=== PATIENT | female | born 1935 | race Caucasian/White ===

== ENCOUNTER 2016-06-29 23:44 | Inpatient (IN) | payer MEDICAID, MEDICARE ==
[~2016-06-29] VITALS: Ht 157.5 cm; Wt 114.8 kg
[~2016-06-29 23:44] MED LIST: ASCO500T20 PO; CALC3.7S NS; COU5 GT; DOCU-144 PO; ENOX100D3 SQ; GLU500 PO; INSU100V32 SUBCUT; LOSA25TA3 PO; MULT-1184 PO; OMEP20CA10 PO; [UNRECOGNIZED DRUG - CODE] PO; [UNRECOGNIZED DRUG - CODE] SQ
[2016-06-29 23:51] VITALS: BP 161/75; PULSE 90; RESP 22; TEMP 97.6; O2SAT 97
[2016-06-30] MEDS ORDERED: MORPHINE 4 MG/ML INJ. SYRINGE IVP ONE (01:00)
[2016-06-30 01:07] LABS: BASOPHILS % (AUTO) 0.2 % (0.0-2.0); EOSINOPHILS # (AUTO) 0.1 K/uL (0.0-0.4); EOSINOPHILS % (AUTO) 1.5 % (0.0-4.0); HEMATOCRIT 38.3 % (36-48); HEMOGLOBIN 12.6 g/dL (12.0-16.0); LYMPHOCYTES # (AUTO) 1.4 K/uL (1.0-5.5); LYMPHOCYTES % (AUTO) 14.9 % (20.5-51.5); MEAN CORPUSCULAR HEMOGLOBIN 28 pg (27-31); MEAN CORPUSCULAR HGB CONC 33 % (32-36); MEAN CORPUSCULAR VOLUME 86 fL (79.0-98.0); MONOCYTES # (AUTO) 0.6 K/uL (0.0-1.0); MONOCYTES % (AUTO) 6.7 % (1.7-9.3); NEUTROPHILS # (AUTO) 7.4 K/uL (1.8-7.7); NEUTROPHILS % (AUTO) 76.7 % (40.0-70.0); PLATELET COUNT (AUTO) 276 K/uL (130-430); RED BLOOD CELL COUNT(AUTO) 4.46 MIL/uL (4.2-6.2); RED CELL DISTRIBUTION WIDTH 17.8 % (9.0-15.0); WHITE BLOOD COUNT (AUTO) 9.5 K/uL (4.8-10.8)
[2016-06-30 01:11] LABS: BILIRUBIN,URINE NEGATIVE (NEGATIVE); CLARITY/URINE SL HAZY (CLEAR); COLOR,URINE YELLOW (YELLOW); GLUCOSE,URINE NEGATIVE (NEGATIVE); KETONES,URINE NEGATIVE (NEGATIVE); LEUKOCYTE ESTERASE ,URINE 1+ (NEGATIVE); NITRITE, URINE NEGATIVE (NEGATIVE); PROTEIN URINE TRACE (NEGATIVE); UROBILINOGEN,URINE 0.2 (0.2-1.0)
[2016-06-30 01:15] LABS: BLOOD, URINE TRACE (NEGATIVE)
[2016-06-30 01:19] LABS: ANION GAP 5 (5-15); CALCIUM 11.2 mg/dL (8.4-11.0); CHLORIDE 103 mmol/L (98-107); GLUCOSE 104 mg/dL (70-99); POTASSIUM 4.1 mmol/L (3.5-5.1); SODIUM SERUM 134 mmol/L (136-145); UREA NITROGEN, BLOOD 13 mg/dL (8-21)
[2016-06-30 01:23] LABS: ALANINE AMINOTRANSFERASE 9 U/L (12-78); ALBUMIN 2.1 g/dL (3.4-4.8); ASPARTATE AMINOTRANSFERASE 29 U/L (10-37); TOTAL BILIRUBIN 0.3 mg/dL (0.0-1.0); TOTAL PROTEIN, SERUM 5.6 g/dL (6.4-8.3)
[2016-06-30 01:40] LABS: BACTERIA,URINE MANY /HPF (None Seen); MUCUS,URINE None Seen /LPF (None Seen); YEAST,URINE Many /HPF (None Seen)
[2016-06-30] MEDS ORDERED: TRAM50TA92 PO (01:54)
[2016-06-30] MEDS ORDERED: ALEN10TA6 PO (01:54)
[2016-06-30] MEDS ORDERED: MAGN400O4 PO (01:54)
[2016-06-30] MEDS ORDERED: COR3.125 PO (01:54)
[2016-06-30] MEDS ORDERED: DULR10 RC (01:54)
[2016-06-30] MEDS ORDERED: FURO-150 PO (01:54)
[2016-06-30] MEDS ORDERED: WARF1TAB2 PO (01:54)
[2016-06-30] MEDS ORDERED: [UNRECOGNIZED DRUG - CODE] TP (01:54)
[2016-06-30] MEDS ORDERED: ACET-1010 PO (01:54)
[2016-06-30] MEDS ORDERED: NA P118E RC (01:54)
[2016-06-30] MEDS ORDERED: ONDA4TAB5 PO (01:54)
[2016-06-30] MEDS ORDERED: ACET325T53 PO (01:54)
[2016-06-30 01:59] LABS: INR 4.2 (0.8-1.2); PROTHROMBIN TIME 47.6 SECS (9.5-12.5)
[2016-06-30] MEDS ORDERED: IPRATROPIUM BROM 0.5 MG/2.5 ML VIAL.NEB (ATROVENT) IH ONE ×2 (02:00→04:15)
[2016-06-30] MEDS ORDERED: methylPREDNISolone SOD SUCC/PF 62.5 MG/ML VIAL IVP ONE (02:00)
[2016-06-30] MEDS ORDERED: ALBUTEROL SULFATE 0.083% 2.5 MG/3 ML VIAL.NEB IH ONE ×2 (02:00→04:15)
[2016-06-30] MEDS ORDERED: NACL 0.9% 1,000 ML IV ONE (02:45)
[2016-06-30] MEDS ORDERED: IOHEXOL 350 mgI/mL, 150 ML INFUS..BTL IV ONE (03:10)
[2016-06-30] MEDS ORDERED: IPRATROPIUM/ALBUTEROL SULFATE 3 ML AMPUL.NEB INH ONE (04:30)
[2016-06-30] MEDS ORDERED: IPRATROPIUM/ALBUTEROL SULFATE 3 ML AMPUL.NEB INH PRN (04:30)
[2016-06-30] MEDS ORDERED: cefTRIAXone 1 GM IVPB PREMIX 50 ML IV ONE ×2 (04:30→09:30)
[2016-06-30] MEDS: FUROSEMIDE 40 MG/4 ML VIAL IVP SCH ×3 (04:30→20:59)
[2016-06-30] MEDS ORDERED: FUROSEMIDE 40 MG/4 ML VIAL IVP ONE (04:30)
[2016-06-30] MEDS ORDERED: AZITHROMYCIN 500 MG in NS 250 ML IV ONE (04:30)
[2016-06-30 04:54] VITALS: BP 157/57; PULSE 96; RESP 18; TEMP 96.8; O2SAT 95
[2016-06-30 05:15] VITALS: BP 157/57; PULSE 95
[2016-06-30] MEDS ORDERED: AZITHROMYCIN 500 MG/VIAL (ZITHROMAX) IV ONE (05:22)
[2016-06-30 08:00] VITALS: BP 137/43; PULSE 96; RESP 18; TEMP 97.3; O2SAT 95
[2016-06-30] MEDS ORDERED: ACETAMINOPHEN 325 MG TABLET PO PRN (08:00)
[2016-06-30] MEDS ORDERED: MILK OF MAGNESIA 30 ML UDC PO PRN (08:00)
[2016-06-30] MEDS ORDERED: NA PHOS,M-B/NA PHOS,DI-BA 118 ML (FLEET ENEMA) RC SCH (08:00)
[2016-06-30] MEDS: OMEPRAZOLE 20 MG CAPSULE.DR (PriLOSEC) PO SCH ×2 (08:57→20:57)
[2016-06-30] MEDS: ASCORBIC ACID 500 MG TABLET PO SCH (08:57)
[2016-06-30] MEDS: DOCUSATE SODIUM 100 MG CAPSULE PO SCH (08:58)
[2016-06-30] MEDS: LOSARTAN POTASSIUM 25 MG TABLET PO SCH (08:58)
[2016-06-30] MEDS: CARVEDILOL 3.125 MG TABLET (COREG) PO SCH ×2 (08:59→20:59)
[2016-06-30] MEDS ORDERED: BISACODYL 10 MG/SUPPOSITORY RC SCH (09:00)
[2016-06-30] MEDS ORDERED: ZINC OXIDE TP SCH (09:00)
[2016-06-30] MEDS ORDERED: BISACODYL 10 MG/SUPPOSITORY RC PRN (09:15)
[2016-06-30] MEDS ORDERED: ALBUTEROL SULFATE 0.083% 2.5 MG/3 ML VIAL.NEB INH PRN (09:15)
[2016-06-30 12:00] VITALS: BP 124/58; PULSE 91; RESP 18; TEMP 97.1; O2SAT 94
[2016-06-30 16:00] VITALS: BP 133/78; PULSE 77; RESP 18; TEMP 98.8; O2SAT 97
[2016-06-30] MEDS ORDERED: WARFARIN SODIUM 1 MG TABLET PO SCH (18:00)
[2016-06-30 20:00] VITALS: BP 142/60; PULSE 80; RESP 18; TEMP 97.2; O2SAT 96
[2016-07-01 00:03] VITALS: BP 150/70; PULSE 87; RESP 20; TEMP 97.1; O2SAT 96
[2016-07-01] MEDS: traMADol HCL HCL 50 MG TABLET (ULTRAM) PO PRN ×3 (00:12→17:46)
[2016-07-01 04:21] VITALS: BP 123/64; PULSE 58; RESP 20; TEMP 96.8; O2SAT 96
[2016-07-01 07:26] LABS: BASOPHILS # (AUTO) 0.1 K/uL (0.0-0.2); BASOPHILS % (AUTO) 0.6 % (0.0-2.0); EOSINOPHILS % (AUTO) 0.2 % (0.0-4.0); HEMATOCRIT 34.5 % (36-48); HEMOGLOBIN 11.3 g/dL (12.0-16.0); LYMPHOCYTES % (AUTO) 9.6 % (20.5-51.5); MEAN CORPUSCULAR HEMOGLOBIN 28 pg (27-31); MEAN CORPUSCULAR HGB CONC 33 % (32-36); MEAN CORPUSCULAR VOLUME 86 fL (79.0-98.0); MONOCYTES # (AUTO) 0.5 K/uL (0.0-1.0); MONOCYTES % (AUTO) 4.8 % (1.7-9.3); NEUTROPHILS % (AUTO) 84.8 % (40.0-70.0); PLATELET COUNT (AUTO) 251 K/uL (130-430); RED CELL DISTRIBUTION WIDTH 18.4 % (9.0-15.0)
[2016-07-01 07:32] LABS: WHITE BLOOD COUNT (AUTO) 10.6 K/uL (4.8-10.8)
[2016-07-01 07:41] LABS: ANION GAP 8 (5-15); CALCIUM 10.7 mg/dL (8.4-11.0); CHLORIDE 101 mmol/L (98-107); CREATININE 0.85 mg/dL (0.55-1.30); GLUCOSE 130 mg/dL (70-99); POTASSIUM 4.2 mmol/L (3.5-5.1); SODIUM SERUM 137 mmol/L (136-145); UREA NITROGEN, BLOOD 19 mg/dL (8-21)
[2016-07-01 08:00] VITALS: BP 143/63; PULSE 84; RESP 16; TEMP 96.9; O2SAT 96
[2016-07-01] MEDS: DOCUSATE SODIUM 100 MG CAPSULE PO SCH (08:58)
[2016-07-01] MEDS: OMEPRAZOLE 20 MG CAPSULE.DR (PriLOSEC) PO SCH ×2 (08:59→20:38)
[2016-07-01] MEDS: ASCORBIC ACID 500 MG TABLET PO SCH (09:00)
[2016-07-01] MEDS: LOSARTAN POTASSIUM 25 MG TABLET PO SCH (09:00)
[2016-07-01] MEDS: CARVEDILOL 3.125 MG TABLET (COREG) PO SCH ×2 (09:00→20:38)
[2016-07-01] MEDS: FUROSEMIDE 40 MG/4 ML VIAL IVP SCH ×2 (09:01→20:37)
[2016-07-01] MEDS: cefTRIAXone 1 GM IVPB PREMIX 50 ML IV SCH (09:02)
[2016-07-01 12:51] VITALS: BP 108/55; PULSE 77; RESP 18; TEMP 96.5; O2SAT 96
[2016-07-01 17:38] VITALS: BP 125/58; PULSE 75; RESP 20; TEMP 96.8; O2SAT 96
[2016-07-01] MEDS: ACETAMINOPHEN 500 MG TABLET PO PRN (20:36)
[2016-07-01 23:51] VITALS: BP_SYST 130; BP_SYST 137; BP_DIAS 47; BP_DIAS 56; PULSE 49; PULSE 82; RESP 16; TEMP 96.7; TEMP 97.9; O2SAT 94; O2SAT 95
[2016-07-02 04:18] VITALS: BP 144/63; PULSE 46; RESP 16; TEMP 98.9; O2SAT 98
[2016-07-02] MEDS ORDERED: ALENDRONATE SODIUM 10 MG TABLET (FOSAMAX) PO SCH (06:00)
[2016-07-02 07:57] VITALS: BP 141/62; PULSE 73; RESP 18; TEMP 98.6; O2SAT 97
[2016-07-02 08:01] LABS: ANION GAP 10 (5-15); CALCIUM 10.6 mg/dL (8.4-11.0); CHLORIDE 98 mmol/L (98-107); CREATININE 0.98 mg/dL (0.55-1.30); GLUCOSE 88 mg/dL (70-99); POTASSIUM 3.4 mmol/L (3.5-5.1); SODIUM SERUM 136 mmol/L (136-145); UREA NITROGEN, BLOOD 20 mg/dL (8-21)
[2016-07-02 09:09] LABS: INR 4.8 (0.8-1.2); PROTHROMBIN TIME 54.8 SECS (9.5-12.5)
[2016-07-02] MEDS: LOSARTAN POTASSIUM 25 MG TABLET PO SCH (09:21)
[2016-07-02] MEDS: CARVEDILOL 3.125 MG TABLET (COREG) PO SCH ×2 (09:21→21:47)
[2016-07-02] MEDS: ASCORBIC ACID 500 MG TABLET PO SCH (09:21)
[2016-07-02] MEDS: cefTRIAXone 1 GM IVPB PREMIX 50 ML IV SCH (09:22)
[2016-07-02] MEDS: DOCUSATE SODIUM 100 MG CAPSULE PO SCH (09:22)
[2016-07-02] MEDS: FUROSEMIDE 40 MG/4 ML VIAL IVP SCH ×2 (09:22→21:45)
[2016-07-02] MEDS: OMEPRAZOLE 20 MG CAPSULE.DR (PriLOSEC) PO SCH ×2 (09:22→21:46)
[2016-07-02 12:00] VITALS: BP 124/46; PULSE 86; RESP 18; TEMP 98.2; O2SAT 97
[2016-07-02 16:00] VITALS: BP 111/55; PULSE 85; RESP 18; TEMP 98.2; O2SAT 97
[2016-07-02 16:23] VITALS: Ht 157.5 cm; Wt 114.8 kg
[2016-07-02] MEDS: ACETAMINOPHEN 500 MG TABLET PO PRN (18:53)
[2016-07-02 19:30] VITALS: BP 135/59; PULSE 80; RESP 20; TEMP 97.1; O2SAT 98
[2016-07-02] MEDS: FLUCONAZOLE 100 mg/ NS 50 ML IV SCH (21:39)
[2016-07-02] MEDS: MUPIROCIN 2% TOPICAL OINTMENT 22 GM TP SCH (21:47)
[2016-07-02] MEDS: LINEZOLID 300 ML IV SCH (22:44)
[2016-07-02] MEDS: traMADol HCL HCL 50 MG TABLET (ULTRAM) PO PRN (23:17)
[2016-07-03] VITALS (7 sets, daily range): BP systolic 114–145; BP diastolic 50–73; PULSE 76–101; RESP 17–20; TEMP 96.6–98.1; O2SAT 93–98
[2016-07-03] MEDS: traMADol HCL HCL 50 MG TABLET (ULTRAM) PO PRN (07:02)
[2016-07-03] MEDS: ONDANSETRON 4 MG ODT TAB PO PRN (08:26)
[2016-07-03] MEDS: FUROSEMIDE 40 MG/4 ML VIAL IVP SCH ×2 (09:43→22:01)
[2016-07-03] MEDS: ASCORBIC ACID 500 MG TABLET PO SCH (09:44)
[2016-07-03] MEDS: CARVEDILOL 3.125 MG TABLET (COREG) PO SCH ×2 (09:44→22:00)
[2016-07-03] MEDS: OMEPRAZOLE 20 MG CAPSULE.DR (PriLOSEC) PO SCH ×2 (09:44→22:00)
[2016-07-03] MEDS: LOSARTAN POTASSIUM 25 MG TABLET PO SCH (09:44)
[2016-07-03] MEDS: DOCUSATE SODIUM 100 MG CAPSULE PO SCH (09:45)
[2016-07-03] MEDS: MUPIROCIN 2% TOPICAL OINTMENT 22 GM TP SCH ×2 (09:48→22:01)
[2016-07-03] MEDS: LINEZOLID 300 ML IV SCH ×2 (09:48→22:54)
[2016-07-03] MEDS: FLUCONAZOLE 100 mg/ NS 50 ML IV SCH (21:44)
[2016-07-04 00:02] VITALS: BP 115/66; PULSE 80; RESP 16; TEMP 98.7; O2SAT 97
[2016-07-04] MEDS: traMADol HCL HCL 50 MG TABLET (ULTRAM) PO PRN (03:30)
[2016-07-04 04:02] VITALS: BP 139/60; PULSE 80; RESP 17; TEMP 97.5; O2SAT 98
[2016-07-04 06:38] LABS: BASOPHILS # (AUTO) 0.2 K/uL (0.0-0.2); EOSINOPHILS # (AUTO) 0.2 K/uL (0.0-0.4); EOSINOPHILS % (AUTO) 1.9 % (0.0-4.0); HEMATOCRIT 33.3 % (36-48); HEMOGLOBIN 11.5 g/dL (12.0-16.0); LYMPHOCYTES # (AUTO) 1.3 K/uL (1.0-5.5); LYMPHOCYTES % (AUTO) 12.2 % (20.5-51.5); MEAN CORPUSCULAR HEMOGLOBIN 30 pg (27-31); MEAN CORPUSCULAR HGB CONC 34 % (32-36); MEAN CORPUSCULAR VOLUME 86 fL (79.0-98.0); MONOCYTES # (AUTO) 0.6 K/uL (0.0-1.0); MONOCYTES % (AUTO) 5.5 % (1.7-9.3); NEUTROPHILS # (AUTO) 8.2 K/uL (1.8-7.7); NEUTROPHILS % (AUTO) 78.4 % (40.0-70.0); PLATELET COUNT (AUTO) 249 K/uL (130-430); RED CELL DISTRIBUTION WIDTH 17.4 % (9.0-15.0); WHITE BLOOD COUNT (AUTO) 10.5 K/uL (4.8-10.8)
[2016-07-04 07:06] LABS: ANION GAP 10 (5-15); CALCIUM 10.4 mg/dL (8.4-11.0); CHLORIDE 94 mmol/L (98-107); CREATININE 1.48 mg/dL (0.55-1.30); GLUCOSE 85 mg/dL (70-99); POTASSIUM 3.7 mmol/L (3.5-5.1); SODIUM SERUM 133 mmol/L (136-145); UREA NITROGEN, BLOOD 24 mg/dL (8-21)
[2016-07-04 07:30] VITALS: BP 142/50; PULSE 76; RESP 20; TEMP 97.6; O2SAT 97
[2016-07-04 07:31] LABS: INR 3.3 (0.8-1.2); PROTHROMBIN TIME 36.8 SECS (9.5-12.5)
[2016-07-04] MEDS: LINEZOLID 300 ML IV SCH ×2 (09:27→23:30)
[2016-07-04] MEDS: FUROSEMIDE 40 MG/4 ML VIAL IVP SCH ×2 (09:28→21:59)
[2016-07-04] MEDS: LOSARTAN POTASSIUM 25 MG TABLET PO SCH (09:28)
[2016-07-04] MEDS: ASCORBIC ACID 500 MG TABLET PO SCH (09:28)
[2016-07-04] MEDS: DOCUSATE SODIUM 100 MG CAPSULE PO SCH (09:28)
[2016-07-04] MEDS: CARVEDILOL 3.125 MG TABLET (COREG) PO SCH ×2 (09:29→22:03)
[2016-07-04] MEDS: OMEPRAZOLE 20 MG CAPSULE.DR (PriLOSEC) PO SCH ×2 (09:29→22:00)
[2016-07-04] MEDS: MUPIROCIN 2% TOPICAL OINTMENT 22 GM TP SCH ×2 (11:00→22:36)
[2016-07-04 12:57] VITALS: BP 110/40; PULSE 74; RESP 18; TEMP 97.9; O2SAT 97
[2016-07-04 16:05] VITALS: BP 104/46; PULSE 75; RESP 18; TEMP 97.9; O2SAT 97
[2016-07-04 19:56] VITALS: BP 142/60; PULSE 80; RESP 15; TEMP 96; O2SAT 96
[2016-07-04] MEDS: FLUCONAZOLE 100 mg/ NS 50 ML IV SCH (21:58)
[2016-07-05] VITALS: BP 123/58; PULSE 92; RESP 17; TEMP 97.2; O2SAT 97
[2016-07-05 04:00] VITALS: BP 120/62; PULSE 87; RESP 16; TEMP 98.7; O2SAT 98
[2016-07-05 08:00] VITALS: BP 129/45; PULSE 81; RESP 18; TEMP 97.3; O2SAT 100
[2016-07-05] MEDS: DOCUSATE SODIUM 100 MG CAPSULE PO SCH (09:00)
[2016-07-05 09:29] LABS: ANION GAP 9 (5-15); CALCIUM 10.9 mg/dL (8.4-11.0); CHLORIDE 94 mmol/L (98-107); CREATININE 1.81 mg/dL (0.55-1.30); GLUCOSE 87 mg/dL (70-99); POTASSIUM 3.4 mmol/L (3.5-5.1); SODIUM SERUM 132 mmol/L (136-145); UREA NITROGEN, BLOOD 27 mg/dL (8-21)
[2016-07-05 09:33] LABS: INR 2.8 (0.8-1.2)
[2016-07-05 09:36] LABS: PROTHROMBIN TIME 31.7 SECS (9.5-12.5)
[2016-07-05] MEDS: LINEZOLID 300 ML IV SCH ×2 (10:09→22:45)
[2016-07-05] MEDS: MUPIROCIN 2% TOPICAL OINTMENT 22 GM TP SCH ×2 (10:09→21:23)
[2016-07-05] MEDS: CARVEDILOL 3.125 MG TABLET (COREG) PO SCH ×2 (10:10→20:57)
[2016-07-05] MEDS: OMEPRAZOLE 20 MG CAPSULE.DR (PriLOSEC) PO SCH ×2 (10:10→20:56)
[2016-07-05] MEDS: LOSARTAN POTASSIUM 25 MG TABLET PO SCH (10:11)
[2016-07-05] MEDS: ASCORBIC ACID 500 MG TABLET PO SCH (10:11)
[2016-07-05] MEDS: FUROSEMIDE 40 MG/4 ML VIAL IVP SCH ×2 (10:11→20:58)
[2016-07-05 12:10] VITALS: BP 114/76; PULSE 67; RESP 18; TEMP 96.4; O2SAT 98
[2016-07-05 16:04] VITALS: BP 146/58; PULSE 73; RESP 18; TEMP 96.8; O2SAT 96
[2016-07-05] MEDS: traMADol HCL HCL 50 MG TABLET (ULTRAM) PO PRN (16:26)
[2016-07-05] MEDS ORDERED: POTASSIUM CHLORIDE 20 MEQ TAB.PRT.SR PO ONE (17:30)
[2016-07-05] MEDS: FLUCONAZOLE 100 mg/ NS 50 ML IV SCH (21:22)
[2016-07-06] VITALS (7 sets, daily range): BP systolic 128–147; BP diastolic 52–62; PULSE 67–87; RESP 16–20; TEMP 96.7–98; O2SAT 94–98
[2016-07-06 08:03] LABS: BASOPHILS # (AUTO) 0.1 K/uL (0.0-0.2); BASOPHILS % (AUTO) 0.6 % (0.0-2.0); EOSINOPHILS # (AUTO) 0.1 K/uL (0.0-0.4); HEMATOCRIT 33.7 % (36-48); LYMPHOCYTES # (AUTO) 0.9 K/uL (1.0-5.5); LYMPHOCYTES % (AUTO) 9.1 % (20.5-51.5); MEAN CORPUSCULAR HEMOGLOBIN 28 pg (27-31); MEAN CORPUSCULAR HGB CONC 33 % (32-36); MEAN CORPUSCULAR VOLUME 85 fL (79.0-98.0); MONOCYTES # (AUTO) 0.7 K/uL (0.0-1.0); MONOCYTES % (AUTO) 6.9 % (1.7-9.3); NEUTROPHILS # (AUTO) 8.4 K/uL (1.8-7.7); NEUTROPHILS % (AUTO) 82.4 % (40.0-70.0); PLATELET COUNT (AUTO) 228 K/uL (130-430); RED BLOOD CELL COUNT(AUTO) 3.96 MIL/uL (4.2-6.2); RED CELL DISTRIBUTION WIDTH 17.6 % (9.0-15.0); WHITE BLOOD COUNT (AUTO) 10.2 K/uL (4.8-10.8)
[2016-07-06 08:14] LABS: ANION GAP 12 (5-15); CALCIUM 10.7 mg/dL (8.4-11.0); CHLORIDE 93 mmol/L (98-107); CREATININE 1.84 mg/dL (0.55-1.30); GLUCOSE 83 mg/dL (70-99); PHOSPHORUS 3.8 mg/dL (2.7-4.5); POTASSIUM 3.5 mmol/L (3.5-5.1); SODIUM SERUM 131 mmol/L (136-145); UREA NITROGEN, BLOOD 28 mg/dL (8-21)
[2016-07-06 08:18] LABS: INR 2.4 (0.8-1.2); PROTHROMBIN TIME 26.9 SECS (9.5-12.5)
[2016-07-06] MEDS: FUROSEMIDE 40 MG/4 ML VIAL IVP SCH ×2 (09:49→21:16)
[2016-07-06] MEDS: DOCUSATE SODIUM 100 MG CAPSULE PO SCH (09:50)
[2016-07-06] MEDS: LOSARTAN POTASSIUM 25 MG TABLET PO SCH (09:50)
[2016-07-06] MEDS: OMEPRAZOLE 20 MG CAPSULE.DR (PriLOSEC) PO SCH ×2 (09:50→21:14)
[2016-07-06] MEDS: ASCORBIC ACID 500 MG TABLET PO SCH (09:50)
[2016-07-06] MEDS: LINEZOLID 300 ML IV SCH ×2 (09:51→22:32)
[2016-07-06] MEDS: CARVEDILOL 3.125 MG TABLET (COREG) PO SCH ×2 (09:51→21:15)
[2016-07-06] MEDS: MUPIROCIN 2% TOPICAL OINTMENT 22 GM TP SCH ×2 (09:58→21:18)
[2016-07-06] MEDS ORDERED: MAGNESIUM SULFATE IN WATER 100 ML IV ONE (13:00)
[2016-07-06] MEDS: MAGNESIUM SULFATE 50 ML IV SCH ×2 (13:54→14:43)
[2016-07-06] MEDS: WARFARIN SODIUM 1 MG TABLET PO SCH (17:02)
[2016-07-06] MEDS: FLUCONAZOLE 100 mg/ NS 50 ML IV SCH (21:15)
[2016-07-07] VITALS (7 sets, daily range): BP systolic 128–146; BP diastolic 43–79; PULSE 60–81; RESP 17–22; TEMP 96–98.1; O2SAT 93–98
[2016-07-07 07:26] LABS: ANION GAP 12 (5-15); CALCIUM 10.8 mg/dL (8.4-11.0); CHLORIDE 93 mmol/L (98-107); CREATININE 2.05 mg/dL (0.55-1.30); GLUCOSE 92 mg/dL (70-99); POTASSIUM 3.4 mmol/L (3.5-5.1); SODIUM SERUM 131 mmol/L (136-145); UREA NITROGEN, BLOOD 30 mg/dL (8-21)
[2016-07-07] MEDS: LINEZOLID 300 ML IV SCH ×2 (10:12→21:15)
[2016-07-07] MEDS: DOCUSATE SODIUM 100 MG CAPSULE PO SCH (10:13)
[2016-07-07] MEDS: ASCORBIC ACID 500 MG TABLET PO SCH (10:14)
[2016-07-07] MEDS: FUROSEMIDE 40 MG TABLET PO SCH (10:14)
[2016-07-07] MEDS: OMEPRAZOLE 20 MG CAPSULE.DR (PriLOSEC) PO SCH ×2 (10:14→21:16)
[2016-07-07] MEDS: LOSARTAN POTASSIUM 25 MG TABLET PO SCH (10:14)
[2016-07-07] MEDS: CARVEDILOL 3.125 MG TABLET (COREG) PO SCH ×2 (10:16→21:16)
[2016-07-07] MEDS: MUPIROCIN 2% TOPICAL OINTMENT 22 GM TP SCH ×2 (10:17→21:17)
[2016-07-07] MEDS: WARFARIN SODIUM 1 MG TABLET PO SCH (18:11)
[2016-07-07] MEDS: FLUCONAZOLE 100 mg/ NS 50 ML IV SCH (21:14)
[2016-07-08] VITALS: BP 132/58; PULSE 69; RESP 17; TEMP 97.4; O2SAT 96
[2016-07-08 04:02] VITALS: BP 124/54; PULSE 61; RESP 17; TEMP 96.9; O2SAT 96
[2016-07-08 07:08] LABS: ANION GAP 11 (5-15); CALCIUM 10.7 mg/dL (8.4-11.0); CHLORIDE 91 mmol/L (98-107); CREATININE 2.05 mg/dL (0.55-1.30); GLUCOSE 92 mg/dL (70-99); POTASSIUM 3.2 mmol/L (3.5-5.1); SODIUM SERUM 130 mmol/L (136-145); UREA NITROGEN, BLOOD 30 mg/dL (8-21)
[2016-07-08 07:52] LABS: INR 2.3 (0.8-1.2); PROTHROMBIN TIME 25.5 SECS (9.5-12.5)
[2016-07-08 08:00] VITALS: BP_SYST 150; BP_SYST 158; BP_DIAS 51; BP_DIAS 61; PULSE 85; PULSE 92; RESP 18; RESP 22; TEMP 98; O2SAT 92; O2SAT 95
[2016-07-08] MEDS: OMEPRAZOLE 20 MG CAPSULE.DR (PriLOSEC) PO SCH ×2 (09:14→22:33)
[2016-07-08] MEDS: DOCUSATE SODIUM 100 MG CAPSULE PO SCH (09:14)
[2016-07-08] MEDS: CARVEDILOL 3.125 MG TABLET (COREG) PO SCH ×2 (09:14→22:34)
[2016-07-08] MEDS: ASCORBIC ACID 500 MG TABLET PO SCH (09:14)
[2016-07-08] MEDS: LOSARTAN POTASSIUM 25 MG TABLET PO SCH (09:15)
[2016-07-08] MEDS: FUROSEMIDE 40 MG TABLET PO SCH (09:15)
[2016-07-08] MEDS: LINEZOLID 300 ML IV SCH (09:21)
[2016-07-08] MEDS: MUPIROCIN 2% TOPICAL OINTMENT 22 GM TP SCH ×2 (09:22→22:45)
[2016-07-08] MEDS ORDERED: MAGNESIUM SULFATE 4 GM in D5W 250 ML IV ONE (10:45)
[2016-07-08 12:00] VITALS: BP 159/82; PULSE 57; RESP 20; TEMP 97.7; O2SAT 92
[2016-07-08] MEDS: traMADol HCL HCL 50 MG TABLET (ULTRAM) PO PRN (13:58)
[2016-07-08 16:03] VITALS: BP 144/64; PULSE 58; RESP 18; TEMP 96.8; O2SAT 95
[2016-07-08] MEDS: WARFARIN SODIUM 1 MG TABLET PO SCH (17:48)
[2016-07-08 20:40] VITALS: BP 155/73; PULSE 56; RESP 17; TEMP 97.1; O2SAT 94
[2016-07-09] VITALS (7 sets, daily range): BP systolic 107–146; BP diastolic 49–69; PULSE 70–81; RESP 15–20; TEMP 96.5–98.9; O2SAT 95–98
[2016-07-09 07:28] LABS: BASOPHILS # (AUTO) 0.1 K/uL (0.0-0.2); BASOPHILS % (AUTO) 1.4 % (0.0-2.0); EOSINOPHILS # (AUTO) 0.1 K/uL (0.0-0.4); EOSINOPHILS % (AUTO) 1.4 % (0.0-4.0); HEMATOCRIT 34.7 % (36-48); HEMOGLOBIN 11.7 g/dL (12.0-16.0); LYMPHOCYTES % (AUTO) 14.2 % (20.5-51.5); MEAN CORPUSCULAR HEMOGLOBIN 29 pg (27-31); MEAN CORPUSCULAR HGB CONC 34 % (32-36); MEAN CORPUSCULAR VOLUME 85 fL (79.0-98.0); MONOCYTES # (AUTO) 0.5 K/uL (0.0-1.0); NEUTROPHILS # (AUTO) 5.1 K/uL (1.8-7.7); PLATELET COUNT (AUTO) 262 K/uL (130-430); RED BLOOD CELL COUNT(AUTO) 4.07 MIL/uL (4.2-6.2); RED CELL DISTRIBUTION WIDTH 17.9 % (9.0-15.0); WHITE BLOOD COUNT (AUTO) 6.8 K/uL (4.8-10.8)
[2016-07-09 07:29] LABS: ANION GAP 10 (5-15); CALCIUM 10.7 mg/dL (8.4-11.0); CHLORIDE 92 mmol/L (98-107); CREATININE 2.18 mg/dL (0.55-1.30); GLUCOSE 99 mg/dL (70-99); POTASSIUM 3.4 mmol/L (3.5-5.1); SODIUM SERUM 129 mmol/L (136-145); UREA NITROGEN, BLOOD 29 mg/dL (8-21)
[2016-07-09 07:41] LABS: INR 2.6 (0.8-1.2); PROTHROMBIN TIME 29.1 SECS (9.5-12.5)
[2016-07-09] MEDS: OMEPRAZOLE 20 MG CAPSULE.DR (PriLOSEC) PO SCH ×2 (09:06→21:32)
[2016-07-09] MEDS: FUROSEMIDE 40 MG TABLET PO SCH (09:06)
[2016-07-09] MEDS: ASCORBIC ACID 500 MG TABLET PO SCH (09:06)
[2016-07-09] MEDS: DOCUSATE SODIUM 100 MG CAPSULE PO SCH (09:06)
[2016-07-09] MEDS: CARVEDILOL 3.125 MG TABLET (COREG) PO SCH ×2 (09:07→21:32)
[2016-07-09] MEDS: MUPIROCIN 2% TOPICAL OINTMENT 22 GM TP SCH ×2 (09:08→21:33)
[2016-07-09] MEDS ORDERED: POTASSIUM CHLORIDE 40 MEQ, LIDOCAINE JECT 2% PF 100 MG 75 MG in NS 250 ML IV ONE (11:00)
[2016-07-09] MEDS: FUROSEMIDE 100 MG in D5W 90 ML IV SCH (12:39)
[2016-07-09 12:50] LABS: BILIRUBIN,URINE NEGATIVE (NEGATIVE); BLOOD, URINE NEGATIVE (NEGATIVE); CLARITY/URINE CLEAR (CLEAR); COLOR,URINE YELLOW (YELLOW); GLUCOSE,URINE NEGATIVE (NEGATIVE); KETONES,URINE NEGATIVE (NEGATIVE); LEUKOCYTE ESTERASE ,URINE 1+ (NEGATIVE); NITRITE, URINE NEGATIVE (NEGATIVE); PH,URINE 5.5 (5.0-8.0); PROTEIN URINE NEGATIVE (NEGATIVE); UROBILINOGEN,URINE 0.2 (0.2-1.0)
[2016-07-09 13:25] LABS: BACTERIA,URINE MODERATE /HPF (None Seen); RBC,URINE 0-3 /HPF (0-3); YEAST,URINE Moderate /HPF (None Seen)
[2016-07-09] MEDS: WARFARIN SODIUM 1 MG TABLET PO SCH (18:24)
[2016-07-09] MEDS: ACETAMINOPHEN 500 MG TABLET PO PRN (23:59)
[2016-07-10 03:46] VITALS: BP 125/50; PULSE 72; RESP 18; TEMP 96.6; O2SAT 97
[2016-07-10 07:24] LABS: BASOPHILS % (AUTO) 0.2 % (0.0-2.0); EOSINOPHILS # (AUTO) 0.1 K/uL (0.0-0.4); EOSINOPHILS % (AUTO) 1.4 % (0.0-4.0); HEMATOCRIT 35.7 % (36-48); HEMOGLOBIN 11.7 g/dL (12.0-16.0); LYMPHOCYTES # (AUTO) 0.8 K/uL (1.0-5.5); LYMPHOCYTES % (AUTO) 14.2 % (20.5-51.5); MEAN CORPUSCULAR HEMOGLOBIN 28 pg (27-31); MEAN CORPUSCULAR HGB CONC 33 % (32-36); MEAN CORPUSCULAR VOLUME 86 fL (79.0-98.0); MONOCYTES # (AUTO) 0.4 K/uL (0.0-1.0); MONOCYTES % (AUTO) 6.3 % (1.7-9.3); NEUTROPHILS # (AUTO) 4.4 K/uL (1.8-7.7); NEUTROPHILS % (AUTO) 77.9 % (40.0-70.0); PLATELET COUNT (AUTO) 224 K/uL (130-430); RED BLOOD CELL COUNT(AUTO) 4.15 MIL/uL (4.2-6.2); RED CELL DISTRIBUTION WIDTH 17.5 % (9.0-15.0); WHITE BLOOD COUNT (AUTO) 5.7 K/uL (4.8-10.8)
[2016-07-10 07:38] LABS: ALANINE AMINOTRANSFERASE 12 U/L (12-78); ALBUMIN 1.8 g/dL (3.4-4.8); ANION GAP 8 (5-15); ASPARTATE AMINOTRANSFERASE 32 U/L (10-37); CALCIUM 10.3 mg/dL (8.4-11.0); CHLORIDE 92 mmol/L (98-107); CREATININE 2.04 mg/dL (0.55-1.30); GLUCOSE 87 mg/dL (70-99); POTASSIUM 3.3 mmol/L (3.5-5.1); SODIUM SERUM 129 mmol/L (136-145); TOTAL BILIRUBIN 0.2 mg/dL (0.0-1.0); TOTAL PROTEIN, SERUM 5.5 g/dL (6.4-8.3); UREA NITROGEN, BLOOD 32 mg/dL (8-21)
[2016-07-10 07:55] VITALS: BP 153/53; PULSE 78; RESP 19; TEMP 96.8
[2016-07-10 08:00] VITALS: BP 153/53; PULSE 78; RESP 19; TEMP 96.8
[2016-07-10] MEDS: ASCORBIC ACID 500 MG TABLET PO SCH (08:41)
[2016-07-10] MEDS: OMEPRAZOLE 20 MG CAPSULE.DR (PriLOSEC) PO SCH ×2 (08:42→23:01)
[2016-07-10] MEDS: CARVEDILOL 3.125 MG TABLET (COREG) PO SCH ×2 (08:42→23:02)
[2016-07-10] MEDS: MUPIROCIN 2% TOPICAL OINTMENT 22 GM TP SCH ×2 (08:43→23:00)
[2016-07-10] MEDS: DOCUSATE SODIUM 100 MG CAPSULE PO SCH (08:43)
[2016-07-10] MEDS ORDERED: POTASSIUM CHLORIDE 40 MEQ, LIDOCAINE JECT 2% PF 100 MG 50 MG in NS 250 ML IV ONE (10:00)
[2016-07-10] MEDS: FUROSEMIDE 100 MG in D5W 90 ML IV SCH (10:15)
[2016-07-10] MEDS ORDERED: METOLAZONE 5 MG TABLET PO ONE (10:30)
[2016-07-10 12:00] VITALS: BP 141/48; PULSE 78; RESP 21; TEMP 96.4; O2SAT 97
[2016-07-10 16:00] VITALS: BP 99/62; PULSE 79; RESP 21; TEMP 97.1; O2SAT 92
[2016-07-10] MEDS: WARFARIN SODIUM 1 MG TABLET PO SCH (18:25)
[2016-07-10 20:05] VITALS: BP 111/74; PULSE 86; RESP 18; TEMP 97.8; O2SAT 97
[2016-07-10] MEDS: MENTHOL/ZINC OXIDE 113 GM OINT. TP SCH (23:00)
[2016-07-11] VITALS (7 sets, daily range): BP systolic 118–143; BP diastolic 46–67; PULSE 74–93; RESP 18–21; TEMP 97–98.6; O2SAT 92–99
[2016-07-11] MEDS: ACETAMINOPHEN 500 MG TABLET PO PRN (01:59)
[2016-07-11 07:53] LABS: ANION GAP 8 (5-15); CALCIUM 10.3 mg/dL (8.4-11.0); CHLORIDE 93 mmol/L (98-107); CREATININE 1.66 mg/dL (0.55-1.30); GLUCOSE 81 mg/dL (70-99); POTASSIUM 3.2 mmol/L (3.5-5.1); SODIUM SERUM 130 mmol/L (136-145); UREA NITROGEN, BLOOD 31 mg/dL (8-21)
[2016-07-11] MEDS: CARVEDILOL 3.125 MG TABLET (COREG) PO SCH ×2 (08:12→20:22)
[2016-07-11] MEDS: ASCORBIC ACID 500 MG TABLET PO SCH (08:12)
[2016-07-11] MEDS: OMEPRAZOLE 20 MG CAPSULE.DR (PriLOSEC) PO SCH ×2 (08:12→20:21)
[2016-07-11] MEDS: DOCUSATE SODIUM 100 MG CAPSULE PO SCH (08:12)
[2016-07-11] MEDS: METOLAZONE 5 MG TABLET PO SCH (08:13)
[2016-07-11] MEDS: MENTHOL/ZINC OXIDE 113 GM OINT. TP SCH ×3 (08:14→20:23)
[2016-07-11] MEDS: MUPIROCIN 2% TOPICAL OINTMENT 22 GM TP SCH ×2 (08:14→20:22)
[2016-07-11 08:50] LABS: INR 3.6 (0.8-1.2); PROTHROMBIN TIME 41.2 SECS (9.5-12.5)
[2016-07-11] MEDS: FUROSEMIDE 100 MG in D5W 90 ML IV SCH (13:21)
[2016-07-12] VITALS (7 sets, daily range): BP systolic 126–157; BP diastolic 48–85; PULSE 85–103; RESP 18–20; TEMP 96.3–98.4; O2SAT 91–97
[2016-07-12 08:05] LABS: ANION GAP 9 (5-15); CALCIUM 11.1 mg/dL (8.4-11.0); CHLORIDE 95 mmol/L (98-107); CREATININE 1.45 mg/dL (0.55-1.30); GLUCOSE 84 mg/dL (70-99); SODIUM SERUM 134 mmol/L (136-145); UREA NITROGEN, BLOOD 29 mg/dL (8-21)
[2016-07-12] MEDS ORDERED: POTASSIUM CHLORIDE 40 MEQ in NS 250 ML IV ONE (10:00)
[2016-07-12] MEDS: FUROSEMIDE 100 MG in D5W 90 ML IV SCH (13:11)
[2016-07-12] MEDS: MUPIROCIN 2% TOPICAL OINTMENT 22 GM TP SCH (22:26)
[2016-07-12] MEDS: MENTHOL/ZINC OXIDE 113 GM OINT. TP SCH (22:27)
[2016-07-12] MEDS: OMEPRAZOLE 20 MG CAPSULE.DR (PriLOSEC) PO SCH (22:28)
[2016-07-12] MEDS: CARVEDILOL 3.125 MG TABLET (COREG) PO SCH (22:31)
[2016-07-13 01:49] VITALS: BP 136/70; PULSE 96; RESP 18; TEMP 98.1
[2016-07-13 06:05] VITALS: BP 130/69; PULSE 92; RESP 18; TEMP 98
[2016-07-13 07:27] LABS: BASOPHILS % (AUTO) 0.1 % (0.0-2.0); EOSINOPHILS # (AUTO) 0.1 K/uL (0.0-0.4); EOSINOPHILS % (AUTO) 0.8 % (0.0-4.0); HEMATOCRIT 35.5 % (36-48); HEMOGLOBIN 11.7 g/dL (12.0-16.0); LYMPHOCYTES % (AUTO) 10.8 % (20.5-51.5); MEAN CORPUSCULAR HEMOGLOBIN 28 pg (27-31); MEAN CORPUSCULAR HGB CONC 33 % (32-36); MEAN CORPUSCULAR VOLUME 86 fL (79.0-98.0); MONOCYTES # (AUTO) 0.7 K/uL (0.0-1.0); MONOCYTES % (AUTO) 7.1 % (1.7-9.3); NEUTROPHILS # (AUTO) 7.5 K/uL (1.8-7.7); NEUTROPHILS % (AUTO) 81.2 % (40.0-70.0); PLATELET COUNT (AUTO) 179 K/uL (130-430); RED BLOOD CELL COUNT(AUTO) 4.12 MIL/uL (4.2-6.2); RED CELL DISTRIBUTION WIDTH 18.3 % (9.0-15.0); WHITE BLOOD COUNT (AUTO) 9.3 K/uL (4.8-10.8)
[2016-07-13 07:51] LABS: PROTHROMBIN TIME 57.5 SECS (9.5-12.5)
[2016-07-13 08:13] LABS: ANION GAP 11 (5-15); CALCIUM 11.2 mg/dL (8.4-11.0); CHLORIDE 93 mmol/L (98-107); CREATININE 1.54 mg/dL (0.55-1.30); GLUCOSE 87 mg/dL (70-99); POTASSIUM 3.1 mmol/L (3.5-5.1); SODIUM SERUM 135 mmol/L (136-145); UREA NITROGEN, BLOOD 28 mg/dL (8-21)
[2016-07-13 08:30] VITALS: BP 146/51; PULSE 78; RESP 20; TEMP 97.9; O2SAT 98
[2016-07-13] MEDS: MUPIROCIN 2% TOPICAL OINTMENT 22 GM TP SCH ×2 (09:00→20:45)
[2016-07-13] MEDS: MENTHOL/ZINC OXIDE 113 GM OINT. TP SCH ×3 (09:00→20:45)
[2016-07-13] MEDS: CARVEDILOL 3.125 MG TABLET (COREG) PO SCH ×2 (09:14→20:46)
[2016-07-13] MEDS: OMEPRAZOLE 20 MG CAPSULE.DR (PriLOSEC) PO SCH ×2 (09:14→20:45)
[2016-07-13] MEDS: ASCORBIC ACID 500 MG TABLET PO SCH (09:15)
[2016-07-13] MEDS: DOCUSATE SODIUM 100 MG CAPSULE PO SCH (09:15)
[2016-07-13] MEDS: METOLAZONE 5 MG TABLET PO SCH (09:15)
[2016-07-13] MEDS ORDERED: POTASSIUM CHLORIDE 20 MEQ TAB.PRT.SR PO ONE (11:00)
[2016-07-13 12:00] VITALS: BP 136/55; PULSE 90; RESP 20; TEMP 96.3; O2SAT 97
[2016-07-13] MEDS: FUROSEMIDE 100 MG in D5W 90 ML IV SCH (12:57)
[2016-07-13] MEDS ORDERED: PAMIDRONATE DISODIUM 90 MG in NS 250 ML IV ONE (14:31)
[2016-07-13 17:25] VITALS: BP 130/57; PULSE 88; RESP 20; TEMP 96.7; O2SAT 97
[2016-07-13 20:43] VITALS: BP 131/58; PULSE 82; RESP 16; TEMP 97.8; O2SAT 96
[2016-07-14] VITALS: BP 127/65; PULSE 79; RESP 18; TEMP 97.1; O2SAT 94
[2016-07-14] MEDS: ACETAMINOPHEN 500 MG TABLET PO PRN (01:34)
[2016-07-14 04:00] VITALS: BP 132/68; PULSE 69; RESP 18; TEMP 96.8; O2SAT 96
[2016-07-14 06:38] LABS: ANION GAP 13 (5-15); CALCIUM 11.7 mg/dL (8.4-11.0); CHLORIDE 92 mmol/L (98-107); CREATININE 1.55 mg/dL (0.55-1.30); GLUCOSE 80 mg/dL (70-99); POTASSIUM 3.3 mmol/L (3.5-5.1); SODIUM SERUM 135 mmol/L (136-145); UREA NITROGEN, BLOOD 30 mg/dL (8-21)
[2016-07-14 06:43] LABS: BASOPHILS # (AUTO) 0.1 K/uL (0.0-0.2); BASOPHILS % (AUTO) 0.6 % (0.0-2.0); EOSINOPHILS # (AUTO) 0.1 K/uL (0.0-0.4); EOSINOPHILS % (AUTO) 1.3 % (0.0-4.0); HEMOGLOBIN 11.5 g/dL (12.0-16.0); LYMPHOCYTES # (AUTO) 1.1 K/uL (1.0-5.5); LYMPHOCYTES % (AUTO) 10.7 % (20.5-51.5); MEAN CORPUSCULAR HEMOGLOBIN 28 pg (27-31); MEAN CORPUSCULAR HGB CONC 33 % (32-36); MEAN CORPUSCULAR VOLUME 86 fL (79.0-98.0); MONOCYTES # (AUTO) 0.6 K/uL (0.0-1.0); NEUTROPHILS # (AUTO) 7.9 K/uL (1.8-7.7); NEUTROPHILS % (AUTO) 81.4 % (40.0-70.0); PLATELET COUNT (AUTO) 164 K/uL (130-430); RED BLOOD CELL COUNT(AUTO) 4.07 MIL/uL (4.2-6.2); RED CELL DISTRIBUTION WIDTH 18.3 % (9.0-15.0); WHITE BLOOD COUNT (AUTO) 9.8 K/uL (4.8-10.8)
[2016-07-14 07:37] LABS: PROTHROMBIN TIME 57.7 SECS (9.5-12.5)
[2016-07-14 08:00] VITALS: BP 126/64; PULSE 82; RESP 18; TEMP 96.2; O2SAT 97
[2016-07-14] MEDS: DOCUSATE SODIUM 100 MG CAPSULE PO SCH (10:28)
[2016-07-14] MEDS: OMEPRAZOLE 20 MG CAPSULE.DR (PriLOSEC) PO SCH ×2 (10:33→21:25)
[2016-07-14] MEDS: POTASSIUM CHLORIDE 20 MEQ TAB.PRT.SR PO SCH (10:34)
[2016-07-14] MEDS: CARVEDILOL 3.125 MG TABLET (COREG) PO SCH ×2 (10:34→21:25)
[2016-07-14] MEDS: ASCORBIC ACID 500 MG TABLET PO SCH (10:35)
[2016-07-14] MEDS: MUPIROCIN 2% TOPICAL OINTMENT 22 GM TP SCH ×2 (10:35→21:27)
[2016-07-14] MEDS: MENTHOL/ZINC OXIDE 113 GM OINT. TP SCH ×3 (10:37→21:26)
[2016-07-14] MEDS: METOLAZONE 5 MG TABLET PO SCH (10:39)
[2016-07-14] MEDS ORDERED: POTASSIUM CHLORIDE 20 MEQ TAB.PRT.SR PO ONE (11:45)
[2016-07-14 12:00] VITALS: BP 126/61; PULSE 91; RESP 20; TEMP 96; O2SAT 94
[2016-07-14] MEDS ORDERED: FLUCONAZOLE 100 MG TABLET (DIFLUCAN) PO ONE (12:30)
[2016-07-14] MEDS: FUROSEMIDE 100 MG in D5W 90 ML IV SCH (14:52)
[2016-07-14 17:19] VITALS: BP 124/63; PULSE 89; RESP 20; TEMP 96.7; O2SAT 94
[2016-07-14 20:00] VITALS: BP 149/67; PULSE 92; RESP 16; TEMP 98.6; O2SAT 95
[2016-07-15] MEDS: ACETAMINOPHEN 500 MG TABLET PO PRN (03:15)
[2016-07-15 03:51] VITALS: BP 136/51; PULSE 60; RESP 18; TEMP 98.2; O2SAT 95
[2016-07-15 03:53] VITALS: BP 128/66; PULSE 66; RESP 20; TEMP 97.8; O2SAT 96
[2016-07-15 06:42] LABS: BASOPHILS % (AUTO) 0.1 % (0.0-2.0); EOSINOPHILS # (AUTO) 0.2 K/uL (0.0-0.4); EOSINOPHILS % (AUTO) 1.4 % (0.0-4.0); HEMATOCRIT 36.1 % (36-48); HEMOGLOBIN 11.7 g/dL (12.0-16.0); LYMPHOCYTES # (AUTO) 1.2 K/uL (1.0-5.5); LYMPHOCYTES % (AUTO) 10.8 % (20.5-51.5); MEAN CORPUSCULAR HEMOGLOBIN 28 pg (27-31); MEAN CORPUSCULAR HGB CONC 33 % (32-36); MEAN CORPUSCULAR VOLUME 85 fL (79.0-98.0); MONOCYTES # (AUTO) 0.6 K/uL (0.0-1.0); MONOCYTES % (AUTO) 5.2 % (1.7-9.3); NEUTROPHILS # (AUTO) 8.8 K/uL (1.8-7.7); NEUTROPHILS % (AUTO) 82.5 % (40.0-70.0); PLATELET COUNT (AUTO) 170 K/uL (130-430); RED BLOOD CELL COUNT(AUTO) 4.24 MIL/uL (4.2-6.2); WHITE BLOOD COUNT (AUTO) 10.8 K/uL (4.8-10.8)
[2016-07-15 07:02] LABS: ANION GAP 18 (5-15); CALCIUM 11.9 mg/dL (8.4-11.0); CHLORIDE 91 mmol/L (98-107); CREATININE 1.67 mg/dL (0.55-1.30); GLUCOSE 89 mg/dL (70-99); POTASSIUM 3.2 mmol/L (3.5-5.1); SODIUM SERUM 137 mmol/L (136-145); UREA NITROGEN, BLOOD 30 mg/dL (8-21)
[2016-07-15 07:32] LABS: PROTHROMBIN TIME 45.6 SECS (9.5-12.5)
[2016-07-15 08:00] VITALS: BP 150/58; PULSE 99; RESP 18; TEMP 96.6
[2016-07-15] MEDS: DOCUSATE SODIUM 100 MG CAPSULE PO SCH ×2 (09:00→10:02)
[2016-07-15] MEDS: ASCORBIC ACID 500 MG TABLET PO SCH (09:58)
[2016-07-15] MEDS: OMEPRAZOLE 20 MG CAPSULE.DR (PriLOSEC) PO SCH ×2 (09:58→21:08)
[2016-07-15] MEDS: POTASSIUM CHLORIDE 20 MEQ TAB.PRT.SR PO SCH (09:58)
[2016-07-15] MEDS: FLUCONAZOLE 100 MG TABLET (DIFLUCAN) PO SCH (09:59)
[2016-07-15] MEDS: CARVEDILOL 3.125 MG TABLET (COREG) PO SCH ×2 (09:59→21:08)
[2016-07-15] MEDS: METOLAZONE 5 MG TABLET PO SCH (09:59)
[2016-07-15] MEDS: MUPIROCIN 2% TOPICAL OINTMENT 22 GM TP SCH ×2 (10:00→21:09)
[2016-07-15] MEDS: MENTHOL/ZINC OXIDE 113 GM OINT. TP SCH ×3 (10:01→21:09)
[2016-07-15 12:00] VITALS: BP 132/58; PULSE 95; RESP 20; TEMP 97.6; O2SAT 96
[2016-07-15] MEDS: FUROSEMIDE 100 MG in D5W 90 ML IV SCH (12:13)
[2016-07-15] MEDS ORDERED: POTASSIUM CHLORIDE 20 MEQ TAB.PRT.SR PO ONE (14:45)
[2016-07-15 16:00] VITALS: BP 142/60; PULSE 87; RESP 21; TEMP 97.4; O2SAT 96
[2016-07-15 20:00] VITALS: BP 133/61; PULSE 93; RESP 20; TEMP 97; O2SAT 96
[2016-07-16] VITALS: BP 131/69; PULSE 82; RESP 18; TEMP 98.1; O2SAT 97
[2016-07-16 04:00] VITALS: BP 127/65; PULSE 79; RESP 17; TEMP 98.6; O2SAT 96
[2016-07-16 06:52] LABS: ANION GAP 17 (5-15); CALCIUM 11.5 mg/dL (8.4-11.0); CHLORIDE 92 mmol/L (98-107); GLUCOSE 88 mg/dL (70-99); SODIUM SERUM 135 mmol/L (136-145); UREA NITROGEN, BLOOD 29 mg/dL (8-21)
[2016-07-16 08:00] VITALS: BP 118/53; PULSE 89; RESP 18; TEMP 96; O2SAT 94
[2016-07-16] MEDS: CARVEDILOL 3.125 MG TABLET (COREG) PO SCH ×2 (08:31→22:21)
[2016-07-16] MEDS: FLUCONAZOLE 100 MG TABLET (DIFLUCAN) PO SCH (08:31)
[2016-07-16] MEDS: OMEPRAZOLE 20 MG CAPSULE.DR (PriLOSEC) PO SCH ×2 (08:31→22:20)
[2016-07-16] MEDS: ASCORBIC ACID 500 MG TABLET PO SCH (08:32)
[2016-07-16] MEDS: POTASSIUM CHLORIDE 20 MEQ TAB.PRT.SR PO SCH (08:32)
[2016-07-16] MEDS: MENTHOL/ZINC OXIDE 113 GM OINT. TP SCH ×3 (08:32→22:23)
[2016-07-16] MEDS: DOCUSATE SODIUM 100 MG CAPSULE PO SCH (09:00)
[2016-07-16] MEDS: MUPIROCIN 2% TOPICAL OINTMENT 22 GM TP SCH ×2 (09:00→21:00)
[2016-07-16 12:00] VITALS: BP 141/72; PULSE 90; RESP 18; TEMP 97.2; O2SAT 98
[2016-07-16 16:00] VITALS: BP 132/64; PULSE 90; RESP 18; TEMP 97.4; O2SAT 97
[2016-07-16 20:00] VITALS: BP 143/62; PULSE 94; RESP 20; TEMP 96.9; O2SAT 96
[2016-07-17 00:58] VITALS: BP 145/75; PULSE 97; RESP 18; TEMP 96.7; O2SAT 96
[2016-07-17 03:31] VITALS: BP 134/63; PULSE 88; RESP 18; TEMP 96.8; O2SAT 94
[2016-07-17 07:39] LABS: INR 3.3 (0.8-1.2)
[2016-07-17 07:43] LABS: PROTHROMBIN TIME 36.9 SECS (9.5-12.5)
[2016-07-17 07:44] LABS: ANION GAP 18 (5-15); CHLORIDE 91 mmol/L (98-107); CREATININE 1.65 mg/dL (0.55-1.30); GLUCOSE 99 mg/dL (70-99); POTASSIUM 4.4 mmol/L (3.5-5.1); SODIUM SERUM 135 mmol/L (136-145); UREA NITROGEN, BLOOD 32 mg/dL (8-21)
[2016-07-17 08:00] VITALS: BP 130/50; PULSE 84; RESP 18; TEMP 97.4; O2SAT 93
[2016-07-17] MEDS: ACETAMINOPHEN 500 MG TABLET PO PRN (08:26)
[2016-07-17] MEDS: DOCUSATE SODIUM 100 MG CAPSULE PO SCH (08:26)
[2016-07-17] MEDS: OMEPRAZOLE 20 MG CAPSULE.DR (PriLOSEC) PO SCH (08:26)
[2016-07-17] MEDS: FLUCONAZOLE 100 MG TABLET (DIFLUCAN) PO SCH (08:26)
[2016-07-17] MEDS: ASCORBIC ACID 500 MG TABLET PO SCH (08:26)
[2016-07-17] MEDS: CARVEDILOL 3.125 MG TABLET (COREG) PO SCH (08:35)
[2016-07-17] MEDS: POTASSIUM CHLORIDE 20 MEQ TAB.PRT.SR PO SCH (08:35)
[2016-07-17] MEDS: MUPIROCIN 2% TOPICAL OINTMENT 22 GM TP SCH (08:36)
[2016-07-17] MEDS: MENTHOL/ZINC OXIDE 113 GM OINT. TP SCH ×2 (08:37→15:54)
[2016-07-17] MEDS: ONDANSETRON 4 MG ODT TAB PO PRN (08:39)
[2016-07-17 09:15] LABS: CALCIUM 12.5 mg/dL (8.4-11.0)
[2016-07-17 12:00] VITALS: BP 135/65; PULSE 110; RESP 20; TEMP 96.5; O2SAT 94
[2016-07-17 16:00] VITALS: BP 138/88; PULSE 101; RESP 21; TEMP 97.3; O2SAT 93
[2016-07-17 17:09] VITALS: BP 138/88; PULSE 101; RESP 21; TEMP 97.3; O2SAT 98
[2016-07-18] MEDS ORDERED: FUROSEMIDE 20 MG TABLET PO SCH (09:00)
== END 2016-07-17 18:10 | DRG 720 ==
LOC: SED 23:44 → STU 06-30 04:24 → SMU 07-06 21:33
PROVIDERS: ADMIT Family Medicine; ATTEND Family Medicine
DX: A41.9 Sepsis, unspecified organism (principal); E43 Unspecified severe protein-calorie malnutrition; J90 Pleural effusion, not elsewhere classified; N17.9 Acute kidney failure, unspecified; C85.90 Non-Hodgkin lymphoma, unspecified, unspecified site; N39.0 Urinary tract infection, site not specified; E11.65 Type 2 diabetes mellitus with hyperglycemia; I10 Essential (primary) hypertension; M81.0 Age-related osteoporosis without current pathological fracture; B37.49 Other urogenital candidiasis; T45.511A Poisoning by anticoagulants, accidental (unintentional), initial encounter; E83.52 Hypercalcemia; B95.2 Enterococcus as the cause of diseases classified elsewhere; E66.9 Obesity, unspecified; R06.02 Shortness of breath; M19.90 Unspecified osteoarthritis, unspecified site; Z96.649 Presence of unspecified artificial hip joint; Z16.21 Resistance to vancomycin; Z22.322 Carrier or suspected carrier of Methicillin resistant Staphylococcus aureus; Z86.718 Personal history of other venous thrombosis and embolism; Z78.9 Other specified health status; Z79.899 Other long term (current) drug therapy
CPT/HCPCS: 36415; 71010; 71275; 76770; 80048; 80053; 81000-TC; 82962; 83605; 83735-TC; 83874; 83880; 84100-TC; 84484; 85025; 85379; 85610-TC; 85730-TC; 87040-TC; 87081; 87086; 87186-TC; 93005; 94640; 94760; 96361; 96365; 96375; 97110-GP; 97530-GP; 99285; J0456; J0696; J1450; J1940; J2020; J2270; J2430; J2930; J3475; J3480; J7040; J7050; J7060; Q0162; Q9967